=== PATIENT | male | born 1950 | race Caucasian/White ===

== ENCOUNTER → 2017-05-06 | Day surgery (SDC) | payer MEDICARE ==
[~2017-05-06] VITALS: Ht 175.3 cm; Wt 84.1 kg
[~2017-05-06] MED LIST: ARMO30TA PO; BACITRACIN TOP OINT 15 GM TUBE ONE; BUPIVACAINE HCL PF 0.25% 30 ML VIAL ONE; BUPIVACAINE HCL PF 0.5% 30 ML VIAL ONE; BUPIVACAINE/EPINEPHRINE 0.25% 50 ML VIAL ONE; CHLORHEXIDINE GLUCONATE 2 % 1 PACK (2 CLOTHS) TOPICAL PRN; DEXAMETHASONE SOD PHOS 4 MG/ML VIAL IV ONE; FAMOTIDINE 20 MG/2 ML VIAL ONE; HYDROmorphone HCL PF 2 MG/ML VIAL ONE; LACTATED RINGER'S 1000 ML IV PRN; LIDOCAINE 1%/EPINEPHrine 1:100,000 SOLN 30 ML VIAL ONE; LIDOCAINE HCL 1% PF 5 ML SYRINGE OTHER ONE; LIDOCAINE HCL 2% 50 ML VIAL ONE; METOPROLOL TARTRATE 25 MG TAB PO PRN; MIDAZOLAM HCL 2 MG/2 ML VIAL ONE; MORPHINE SULFATE 4 MG/ML INJ ONE; MULTTAB67 PO; NEOMYCIN/POLYMYXIN 1 ML G.U. IRRIGANT ONE; ONDANSETRON HCL 4 MG/2 ML VIAL IV PUSH ONE; POVIDONE IODINE 5% (ANTISEPSIS KIT) 4 APPLICATIONS EACH NARE PRN; PROPOFOL 200 MG/20 ML AMP IV ONE; SODIUM CHLORID 0.9% 500 ML IV PRN; ceFAZolin 1,000 MG/NS 100 ML IV SCH
[2017-05-06 09:31] LABS: HEMATOCRIT 44.2 % (39.0-51.0); HEMOGLOBIN 15.5 GM/DL (13.0-17.0); MEAN CELL VOLUME 89.8 FL (80.0-100.0); MEAN CORPUSCULAR HEMOGLOBIN 31.4 PG (27.0-34.0); MEAN PLATELET VOLUME 6.7 FL (7.0-11.0); PLATELET COUNT 214 TH/MM3 (150-450); RED BLOOD COUNT 4.92 MIL/MM3 (4.50-5.90); RED CELL DISTRIBUTION WIDTH 12.7 % (11.6-17.2); WHITE BLOOD COUNT 5.6 TH/MM3 (4.0-11.0)
[2017-05-06 13:35] VITALS: PULSE 56
[2017-05-06 14:25] VITALS: BP 134/72; PULSE 54; RESP 15; TEMP 97.4; O2SAT 100
--- NOTE | 2017-05-06 15:13 | EKG ---
Date Performed: 05/06/2017 Time Performed: 09:15:53 PTAGE: 66 years EKG: SINUS BRADYCARDIA WITH SINUS ARRHYTHMIA WITH FIRST DEGREE AV BLOCK ABNORMAL ECG NO PREVIOUS TRACING DOCTOR: Nathaniel Norton Interpretating Date/Time 05/06/2017 15:12:14
--- NOTE | 2017-05-06 16:21 | PD.OP ---
Operative Report Date of Surgery: May 06, 2017 Preoperative Diagnosis: (1) Finger mass, left Postoperative Diagnosis: (1) Finger mass, left Procedure: Excision of the left small finger mass over 1.5 cm (77076) Surgeon: Valeriy Cohn Beater Out(s): . Operation and Findings: This is 66-year-old male who presented with slowly enlarging left small finger tip mass. Patient desired this mass to be excised. Risks benefits alternative treatments were discussed. All questions answered. The patient expressed understanding. The patient elected to assume the risks of operative excision of the above mass. Informed consent was obtained. The surgical site was marked in the preoperative holding bay. The patient was given antibiotics on- call to the operating room. The patient was taken to the operating room. All pressure points were padded. After the smooth induction of general anesthesia, a surgical timeout was performed, and a digital block with quarter percent Marcaine with epinephrine was placed. The surgical site was prepped and draped in the usual sterile fashion. A tourniquet using the finger of a glove was placed over the small finger. Hemostat clamp was placed on the tourniquet. A Semaj incision was made over the mass. Blunt dissection was used to free the mass from the adjacent soft tissue. The radial neurovascular bundle was appreciated and kept free from injury. The ulnar neurovascular bundle was neither visualized nor looked for. The dissection was kept very close to the mass which was attached to the volar flexor tendon sheath. The mass was freed from the adjacent tissue and sent for permanent pathology. The flexor tendon and flexor tendon sheath were intact at the end of the procedure. The surgical site was copiously irrigated. The wound was closed with interrupted 4-0 nylons in a horizontal mattress fashion. The wound was dressed with bacitracin Xeroform gauze and dry gauze fluffs an aluminum splint a Danna and a Coban. All needle sponge and instrument counts were correct 2. The patient arrived stable and doing well to the PACU. Valeriy Cohn MD May 06, 2017 16:21
== END | disposition home or self-care (01) ==
LOC: PHSDC 07:44
PROVIDERS: ATTEND Student in an Organized Health Care Education/Training Program
DX: D48.1 Neoplasm of uncertain behavior of connective and other soft tissue (principal); E03.9 Hypothyroidism, unspecified; Z01.810 Encounter for preprocedural cardiovascular examination; Z01.818 Encounter for other preprocedural examination
CPT/HCPCS: 01810; 26113; 36415; 85027; 88307; 93005; J0690; J1100; J1170; J2250; J2270; J2405; J7120; 88305